=== PATIENT | female | born 1985 | race Caucasian/White ===

== ENCOUNTER 2022-04-23 06:45 | Emergency (ER) | payer OTHER ==
[~2022-04-23] VITALS: Ht 162.6 cm; Wt 74.4 kg
--- NOTE | 2022-04-23 07:00 | NUR ---
PRESENTED TO THE ER VIA [facility] 860 FOR C/O LOWER ABD PAIN AND NAUSEA. DENIED DIARRHEA OR VOMITING. NO FEVER OR CHILLS. PATIENT AMBULATORY TO THE BATHROOM WITH ASSISTANCE . URINE SAMPLE OBTIANED. PT WAS PLACED IN BED 4 ER. VSS. WILL CONT TO MONITOR
--- NOTE | 2022-04-23 07:00 | NUR ---
URINE SPECIMEN SENT TO LAB
--- NOTE | 2022-04-23 07:07 | NUR ---
SEEN BY MD AT BEDSIDE
--- NOTE | 2022-04-23 07:07 | NUR ---
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
--- NOTE | 2022-04-23 07:14 | NUR ---
IV CANNULA G20 INSERTED ON RIGHT HAND. LINE PATENT.
[2022-04-23] MEDS ORDERED: KETOROLAC TROMETHAMINE INJ 30 MG/ML VIAL ONE (07:15)
[2022-04-23] MEDS ORDERED: ONDANSETRON HCL/PF 4 MG/2 ML VIAL ONE (07:15)
[2022-04-23 07:21] LABS: BASOPHILS % (AUTO) 0.4 % (0.0-2.0); EOSINOPHILS % (AUTO) 1.2 % (0.0-6.0); HEMATOCRIT 42 % (33-45); HEMOGLOBIN 14.2 g/dL (11.5-14.8); LYMPHOCYTES # (AUTO) 2.9 K/uL (0.8-4.8); LYMPHOCYTES % (AUTO) 28.7 % (20.0-44.0); MEAN CORPUSCULAR HGB CONC 34 g/dl (31.0-36.0); MEAN CORPUSCULAR VOLUME 94 fL (82-100); MONOCYTES # (AUTO) 0.8 K/uL (0.1-1.30); MONOCYTES % (AUTO) 7.9 % (2.0-12.0); NEUTROPHILS # (AUTO) 6.3 K/uL (1.8-8.9); NEUTROPHILS % (AUTO) 61.8 % (43.0-81.0); PLATELET COUNT (AUTO) 410 K/uL (150-450); RED BLOOD CELL COUNT(AUTO) 4.49 MIL/uL (4.0-5.2); WHITE BLOOD COUNT (AUTO) 10.2 K/uL (4.3-11.0)
[2022-04-23 07:23] LABS: BILIRUBIN,URINE NEGATIVE (NEGATIVE); COLOR,URINE YELLOW (YELLOW); LEUKOCYTE ESTERASE ,URINE NEGATIVE (NEGATIVE); NITRITE, URINE NEGATIVE (NEGATIVE); PROTEIN,URINE NEGATIVE (NEGATIVE); UGLUCOSE NEGATIVE (NEGATIVE); UROBILINOGEN,URINE 0.2 EU/dL (0.2)
[2022-04-23] MEDS ORDERED: IV NS 0.9% 1,000 ML IV ONE (07:30)
[2022-04-23] MEDS ORDERED: ONDANSETRON 4 MG TAB.RAPDIS PO ONE (07:30)
[2022-04-23] MEDS ORDERED: KETOROLAC TROMETHAMINE INJ 30 MG/ML VIAL IM ONE (07:30)
[2022-04-23] MEDS ORDERED: ONDANSETRON HCL/PF 4 MG/2 ML VIAL IV ONE (07:30)
[2022-04-23] MEDS ORDERED: KETOROLAC TROMETHAMINE INJ 30 MG/ML VIAL IV ONE (07:30)
[2022-04-23 07:39] LABS: BACTERIA,URINE Moderate /HPF (None Seen); SQUAMOUS EPITHELIAL CELL,UR Few /HPF (None Seen); WBC,URINE 0-2 /HPF (0-3)
[2022-04-23 08:16] LABS: ALBUMIN 3.5 g/dL (3.4-5.0); BILIRUBIN,DIRECT 0.1 mg/dL (0.0-0.2); BILIRUBIN,TOTAL 0.2 mg/dL (0.2-1.0); CALCIUM, SERUM 9.1 mg/dL (8.5-10.1); CREATININE 0.9 mg/dL (0.6-1.3); POTASSIUM 3.2 mmol/L (3.5-5.1); TOTAL PROTEIN, SERUM 7.9 g/dL (6.4-8.2)
[2022-04-23] MEDS ORDERED: ONDA4TAB11 PO (08:47)
[2022-04-23] MEDS ORDERED: MAGN296S72 PO (08:47)
[2022-04-23] MEDS ORDERED: POTASSIUM CHLORIDE 20 MEQ TAB.PRT.SR PO ONE ×2 (08:59→09:00)
--- NOTE | 2022-04-23 09:02 | NUR ---
IV removed. Catheter intact and site benign. Pressure and 4x4 applied to site. No bleeding noted.Patient discharged to home in stable condition. Written and verbal after care instructions given. Patient verbalizes understanding of instruction.
[2022-04-23 09:03] VITALS: BP 104/65
== END 2022-04-23 09:03 | disposition home or self-care (01) ==
LOC: ER 06:49
DX: R10.2 Pelvic and perineal pain (principal); K59.00 Constipation, unspecified; R11.0 Nausea; Z60.2 Problems related to living alone; Z79.899 Other long term (current) drug therapy
CPT/HCPCS: 99284; 96374; 96375; 85025; 80048; 87086; 80076; 84703; 81001; 36415; J1885; J2405; J7030